=== PATIENT | male | born 2005 | race Caucasian/White ===

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

== ENCOUNTER → 2023-05-25 | Outpatient (CLI) | payer OTHER | LOC: CARD 10:28 | PROVIDERS: ATTEND Nurse Practitioner Family | DX: R00.2 Palpitations (principal); R94.31 Abnormal electrocardiogram [ECG] [EKG] | CPT/HCPCS: 93005 ==